=== PATIENT | male | born 1990 ===

== ENCOUNTER 2024-01-30 16:04 | Outpatient (AMB) | payer OTHER, SELFPAY ==
--- NOTE | 2024-01-30 16:10 | AM.OFFWIN_ITS ---
Intake Vital Signs 01/30/24 16:12 Height 5 ft 9 in Weight 187 lb BMI 27.6 BP 110/70 Blood Pressure Location Rt brachial Position Sitting Pulse 88 Pulse Source Pulse Oximeter Temp 98.9 F Temp Source Oral Pulse Oximetry (%) 98 Oxygen Delivery Method Room Air Intake Visit Reasons: [employer]- LT ear pain Intake Note: pt c/o LT ear pain. Started yesterday when woke up. Blocked sensation. Can't hear Patient Tobacco Use Status: Never used Tobacco Allergies No Known Allergies Allergy (Verified 01/30/24 16:11) Do you need a note to return to daycare/school/sports/work: No HPI HPI Comments History of Present Illness Details 33 yo male patient who presents to the w alk in clinic with c/o left ear pain since yesterday. Reports changes in hearing from the left ear. PFSH Social History Patient Tobacco Use Status: Never used Tobacco Review of Systems Const All systems reviewed & are unremarkable except as noted in HPI and below Physical Exam Vital Signs: Last Vital Signs Temp 98.9 F 01/30/24 16:12 Pulse 88 01/30/24 16:12 BP 110/70 01/30/24 16:12 Pulse Ox 98 01/30/24 16:12 Oxygen Delivery Method Room Air 01/30/24 16:12 BMI result Body Mass Index 27.6 Const General: cooperative and no acute distress Orientation/consciousness: patient oriented x3 HEENT Head: Yes normocephalic Ears: external ears normal and TM abnormal bulging on the left, erythematous on the left, with fluid behind the TM on the right and retracted on the left General nose exam: Normal external nose present Face and sinus: Yes normal facial exam Mouth: moist mucous membranes Skin General skin exam: no rashes or lesions noted Neuro General: patient oriented x3, gait normal and moves all extremities Psych Speech and movement: Normal speech and movement present Assessment & Plan Assessment & Plan (1) Otitis media: Code(s): H66.90 - Otitis media, unspecified, unspecified ear Qualifiers: Otitis media type: unspecified Chronicity: acute Qualified Code(s): H66.90 - Otitis media, unspecified, unspecified ear Plan: Ordered Abx ear drops Acetaminophen for pain relief. Medications: New ciprofloxacin-dexamethasone 0.3-0.1 % 4 drps otic (ears) BID 7 days 7.5 mL 0RF H66.90 - Otitis media, unspecified, unspecified ear Coding Level of Care Code New Pt Level 3 (31444) Diagnoses Acute otitis media, unspecified otitis media type H66.90 Otitis media type: unspecified Chronicity: acute Time Spent (min) 15
[2024-01-30 16:12] VITALS: BP 110/70; PULSE 88; TEMP 37.2; O2SAT 98; BMI 27.6
== END 2024-01-30 16:23 | disposition home or self-care (01) ==
LOC: HO.HMGWI 16:04
PROVIDERS: Visit Provider Nurse Practitioner Family
DX: H66.90 Otitis media, unspecified, unspecified ear (principal)
CPT/HCPCS: 99203